=== PATIENT | female | born 1980 | race African-American/Black ===

== ENCOUNTER 2019-07-17 17:41 | Emergency (ER) | payer MEDICAID ==
[~2019-07-17] VITALS: Ht 160 cm; Wt 133.8 kg
[2019-07-17 17:54] VITALS: BP 133/76
--- NOTE | 2019-07-17 18:50 | NUR ---
CALLED TO [facility] NO ANSWER
--- NOTE | 2019-07-17 19:05 | NUR ---
CALLED TO TRIAGE NO ANSWER.
--- NOTE | 2019-07-17 19:16 | NUR ---
per admitting pt left.
== END 2019-07-17 19:18 | disposition left against medical advice (07) ==
LOC: ER 17:48
DX: Z53.21 Procedure and treatment not carried out due to patient leaving prior to being seen by health care provider (principal); R06.02 Shortness of breath; F31.9 Bipolar disorder, unspecified